=== PATIENT | female | born 1965 | race Caucasian/White ===

== ENCOUNTER 2016-05-23 21:24 | Emergency (ER) | payer MEDICAID ==
[~2016-05-23] VITALS: Ht 144.8 cm; Wt 73.0 kg
[2016-05-23 21:31] VITALS: Ht 144.8 cm; Wt 73.0 kg
--- NOTE | 2016-05-23 22:54 | ERD ---
ER Documentation Chief Complaint Date/Time DATE: 05/23/16 TIME: 22:44 Chief Complaint COUGH FOR FEW DAYS, RODRIGUEZ AND BLISTER ON THE SIDE OF R EYE HPI 51-year-old female presents here in emergency department for complaint of cough for 1 week. Patient has been dry cough, does not cough up any phlegm or blood. Patient does not have any shortness breath or wheezing. Patient's complaining of headache, runny nose nasal congestion. Patient does not have any fever and discharge from the nose. Patient does not have any sore throat or ear pain. Patient started to have a blister right under the left eye, left cheek area. She did not take any medications to help with symptoms. ROS All systems reviewed and are negative except as per history of present illness. Medications Home Meds Reported Medications [none] Unknown Strength No Conflict Check 05/23/16 Allergies Allergies: Coded Allergies: No Known Allergy (Unverified , 05/23/16) PMhx/Soc Medical and Surgical Hx: pt denies Medical Hx, pt denies Surgical Hx Hx Alcohol Use: No Hx Substance Use: No Hx Tobacco Use: No FmHx Family History: No coronary disease, No diabetes, No other Physical Exam Vitals Vital Signs Date Time Temp Pulse Resp B/P Pulse Ox O2 Delivery O2 Flow Rate FiO2 05/23/16 21:31 97.8 68 18 140/78 100 Physical Exam GENERAL: The patient is well developed and appropriate for usual state of health, in no apparent distress. CHEST: Clear to auscultation bilaterally. There are no rales, wheezes or rhonchi. HEART: Regular rate and rhythm. No murmurs, clicks, rubs or gallops. No S3 or S4. ABDOMEN: Soft, nontender and nondistended. Good bowel sounds. No rebound or guarding. No gross peritonitis. No gross organomegaly or masses. No Camarena sign or McBurney point tenderness. BACK: No midline or flank tenderness. EXTREMITIES: Equal pulses bilaterally. There is no peripheral clubbing, cyanosis or edema. No focal swelling or erythema. Full range of motion. Grossly neurovascularly intact. NEURO: Alert and oriented. Cranial nerves 2-12 intact. Motor strength in all 4 extremities with 5/5 strength. Sensation grossly intact. Normal speech and gait. SKIN: There is no apparent rash or petechia. The skin is warm and dry. HEMATOLOGIC AND LYMPHATIC: There is no evidence of excessive bruising or lymphedema. No gross cervical, axillary, or inguinal lymphadenopathy. Results 24 hrs Current Medications Medications (Trade) Dose Ordered Sig/Carmelo Route PRN Reason Start Time Stop Time Status Last Admin Dose Admin Fluorescein Sodium ([id number]) 1 strip ONCE ONCE LEFT EYE 05/23/16 23:00 05/23/16 23:01 DC Procedure Note: After obtaining informed consent, the left eye was stained using fluorescein dye. After staining the eye, A Wood's lamp was used to evaluate the eye. There is no foreign body noted in the eye. No corneal abrasions noted. No lesions noted. Patient tolerated procedure well. PROCEDURE: XR Chest. CLINICAL INDICATION: Cough. TECHNIQUE: AP view of the chest was obtained. COMPARISON: None available FINDINGS: The cardiomediastinal silhouette is within normal limits. The lungs are clear. No signs of pleural fluid or pneumothorax are seen. The osseous structures and soft tissues are unremarkable. IMPRESSION: 1. No evidence for active cardiopulmonary disease. RPTAT: HGAS .Won Champion MD, MD Date Time Electronically viewed and signed by .Won Champion MD, MD on 05/23/2016 23: 17 .S/ CC: [facility] Procedures/MDM Medical Decision Making: Patient symptoms are most likely consistent with upper respiratory tract infection which viral in origin. There is low suspicion for Pneumonia at this time since patients lungs sounds are clear, patient O2 saturation is normal and patient doesnt show any respiratory distress. Patients chest xray doesnt show infiltrates or any other cardiopulmonary emergencies at this time. There is low suspicion for other cardiopulmonary emergencies at this time such as CHF, Pulmonary Embolism, Pneumothorax, Aortic Aneurysm or any other cardiopulmonary emergencies at this time. There is low suspicion for sepsis. Patient appears well and is hemodynamically stable. Patient does not have any fever. Patient's left facial blister most likely is consistent with herpes simplex virus 1. No symptoms of herpes Simplex virus keratitis. Patient's eye exam does not show any keratitis or lesions. Disposition: Home. Condition: Stable Prescriptions: Acyclovir, guaifenesin with codeine, Zyrtec, ibuprofen Instructions: Patient is advised to take medications as prescribed. Patient is advised to rest. Patient advised to increase fluid intake, do humidifier at home and if possible, do salt water gargles. Patient is advised that if symptoms are worse, shortness of breath, uncontrolled fever, stridor, vomiting, worst signs and symptoms to return to emergency department immediately. Otherwise, patient is advised to follow up with primary doctor in 5-7 days. Departure Diagnosis: Primary Impression: Herpes simplex viral infection Additional Impression: URI (upper respiratory infection) URI type: unspecified viral URI Qualified Code: J06.9 - Viral upper respiratory tract infection Condition: Stable Patient Instructions: Herpes, Uri, Viral, No Abx (Child) Additional Instructions: Patient is advised to take medications as prescribed. Patient is advised to rest. Patient advised to increase fluid intake, do humidifier at home and if possible, do salt water gargles. Patient is advised that if symptoms are worse, shortness of breath, uncontrolled fever, stridor, vomiting, worst signs and symptoms to return to emergency department immediately. Otherwise, patient is advised to follow up with primary doctor in 5-7 days. REBEKAH DAVILA NP May 23, 2016 22:54
[2016-05-23] MEDS ORDERED: FLUORESCEIN STRIP LEFT EYE ONE (23:00)
--- NOTE | 2016-05-23 23:17 | RADRPT ---
PROCEDURE: XR Chest. CLINICAL INDICATION: Cough. TECHNIQUE: AP view of the chest was obtained. COMPARISON: None available FINDINGS: The cardiomediastinal silhouette is within normal limits. The lungs are clear. No signs of pleural f luid or pneumothorax are seen. The osseous structures and soft tissues are unremarkable. IMPRESSION: 1. No evidence for active cardiopulmonary disease. RPTAT: HGAS .Won Champion MD, MD Date Time Electronically viewed and signed by .Won Champion MD, on 05/23/2016 23:17 .S/
[2016-05-23] MEDS ORDERED: ACYC800T57 PO (23:38)
[2016-05-23] MEDS ORDERED: IBUP400T22 PO (23:38)
[2016-05-23] MEDS ORDERED: GUAI473L22 PO (23:38)
[2016-05-23] MEDS ORDERED: CETI10CA PO (23:38)
== END 2016-05-23 23:55 | disposition home or self-care (01) ==
LOC: FTE 21:24
DX: B00.9 Herpesviral infection, unspecified (principal); J06.9 Acute upper respiratory infection, unspecified
CPT/HCPCS: 71010; Z7502